=== PATIENT | female | born 1990 | race Caucasian/White ===

== ENCOUNTER 2018-05-06 03:50 | Emergency (ER) | payer MEDICARE, MEDICAID ==
[2018-05-06 04:01] VITALS: BP 143/80; PULSE 78
--- NOTE | 2018-05-06 04:28 | C.PDOC ---
History Of Present Illness 27 y/o female presents to the ED for evaluation of a laceration which she sustained earlier today. Patient admits to drinking alcohol and states she accidentally tripped and fell and sustained an injury to her left eyebrow. She denies LOC, nausea, vomiting. Time Seen by Provider: 05/06/18 04:01 Chief Complaint (Nursing): Abnormal Skin Integrity History Per: Patient History/Exam Limitations: intoxication Onset/Duration Of Symptoms: Hrs Current Symptoms Are (Timing): Still Present Location Of Injury: Left: Face (eyebrow ) Additional History Per: Patient Past Medical History Reviewed: Historical Data, Nursing Documentation, Vital Signs Vital Signs: Last Vital Signs Temp 98 F 05/06/18 04:56 Pulse 78 05/06/18 04:56 Resp 20 05/06/18 04:56 BP 143/80 05/06/18 03:57 Pulse Ox 97 05/06/18 05:29 - Medical History PMH: No Chronic Diseases Surgical History: No Surg Hx Family History: States: Unknown Family Hx - Social History Hx Tobacco Use: Yes Hx Alcohol Use: Yes Hx Substance Use: Yes - Immunization History Hx Tetanus Toxoid Vaccination: No Hx Influenza Vaccination: No Hx Pneumococcal Vaccination: No Review Of Systems Gastrointestinal: Negative for: Nausea, Vomiting Skin: Positive for: Other (laceration to left eyebrow ) Neurological: Negative for: Other (LOC ) Psych: Positive for: Other (EtOH intoxication ) Physical Exam - Physical Exam Appears: Non-toxic, No Acute Distress Skin: Normal Color, Warm, Dry Head: Laceration (1.5cm to left lateral eyebrow, going into subcutaenous tissue. no active bleeding ) Eye(s): bilateral: Normal Inspection Oral Mucosa: Moist Neck: Supple Chest: Symmetrical, No Deformity, No Tenderness Cardiovascular: Rhythm Regular, No Murmur Respiratory: Normal Breath Sounds, No Rales, No Rhonchi, No Wheezing Extremity: Normal ROM, Capillary Refill (less than 2 seconds ) Neurological/Psych: Oriented x3, Normal Speech, Normal Cognition ED Course And Treatment O2 Sat by Pulse Oximetry: 97 (on RA) Pulse Ox Interpretation: Normal Laceration - Laceration Repair left lateral eyebrow Wound Length (In cm): 1.5 Description Of Wound: Linear Wound Examination: Irrigated With Saline, No FB With Wound Exploration, No Tendon Injury With Wound Exploration Wound Closure: Steri Strips, Skin Glue Wound Complexity: Simple Medical Decision Making Medical Decision Making: alcohol intox 1.5 cm L lateral eyebrow lac now cleaned and steri-strip/glued with excellent cosmetic effect Disposition Doctor Will See Patient In The: Office Counseled Patient/Family Regarding: Studies Performed, Diagnosis - Disposition Referrals: [facility] [Outside] [facility] [Outside] [facility] [Outside] [facility] [Outside] Disposition: HOME/ ROUTINE Disposition Time: 04:27 Condition: GOOD Instructions: Laceration Repair With Glue (DC), Alcohol Abuse and Alcoholism ( DC) Forms: [employer] (Syrian) - Clinical Impression Clinical Impression: Alcohol abuse, Facial laceration - Scribe Statement The provider has reviewed the documentation as recorded by the Scribe (Dina Solorzano) Provider Attestation: All medical record entries made by the Scribe were at my direction and personally dictated by me. I have reviewed the chart and agree that the record accurately reflects my personal performance of the history, physical exam, medical decision making, and the department course for this patient. I have also personally directed, reviewed, and agree with the discharge instructions and disposition.
[2018-05-06 05:00] VITALS: RESP 20; TEMP 98
[2018-05-06 05:27] VITALS: O2SAT 97
== END 2018-05-06 04:56 | disposition home or self-care (01) ==
LOC: C.ER 03:50
DX: S01.112A Laceration without foreign body of left eyelid and periocular area, initial encounter (principal); W01.0XXA Fall on same level from slipping, tripping and stumbling without subsequent striking against object, initial encounter; F10.10 Alcohol abuse, uncomplicated; Y90.9 Presence of alcohol in blood, level not specified